=== PATIENT | female | born 1950 | race Caucasian/White ===

== ENCOUNTER → 2024-03-29 07:44 | Outpatient (REF) | payer MEDICARE, BC, SELFPAY ==
[2024-03-29 10:55] LABS: Blood Urea Nitrogen 16 mg/dl (7-17); Calcium 10.1 mg/dl (8.4-10.2); Carbon Dioxide 29 mmol/L (22-30); Chloride 96 mmol/L (98-107); Glucose 91 mg/dl (70-99); Potassium 3.6 mmol/L (3.5-5.1); Sodium 135 mmol/L (135-145); eGFR > 60.00
== END ==
LOC: HWRAD 07:44
PROVIDERS: ATTENDING PHYSICIAN Specialist; FAMILY PHYSICIAN Family Medicine
DX: E04.1 Nontoxic single thyroid nodule (principal); N28.89 Other specified disorders of kidney and ureter
CPT/HCPCS: 36415; 76536; 80048

== ENCOUNTER 2024-05-25 06:12 | Day surgery (SDC) | payer MEDICARE, BC, SELFPAY ==
--- NOTE | 2024-03-25 14:57 | CM ---
Addendum entered by Татьяна Swanson 05/17/24 09:21:
VN referral completed and sent to [facility] through [facility] for start of care on 05/25.
Addendum entered by Татьяна Swanson 04/14/24 11:56:
Patient's surgery date has been changed to 05/25/24.
Original Note:
Patient is scheduled for an elective R TKR on04/20/24- she is a same day patient. Spoke with patient prior to surgery. Introduced role of Orthopedic Navigator. Patient reports that she lives with her who has Parkinson's and adult son who will
be her 'online health and fitness coach'. THey live in split level home . One step to enter lowest level with half bath. UP 6 steps to living areas. Up 6 more steps to full bath and bedroom. She currently functions independently. She will get a rolling walker and commode.
She has never had VN services. PCP is Zora Maria.
Discussed orthopedic program and post surgical plans. Reviewed that she will have VN services initially (medicare.gov website and ratings reviewed) and will then start outpatient PT. Patient selects [facility]N (face sheet faxed to [facility] to facilitate
confirmation of benefits) for her home care needs and will go to [facility] in [place] for outpatient PT.
Patient is in agreement with plan and states that her son, spouse and children who lives near by to be home with her.
Patient will complete online education.
Plan: Orthopedic Navigator will remain available to assist with the care of patient and will reassess discharge needs after surgery.
[2024-04-01 13:59] VITALS: BMI 34.7
[2024-04-01 14:56] VITALS: BMI 34.7
[2024-04-01 15:16] LABS: Hemoglobin 11.8 g/dL (12.0-16.0); Mean Corp Hgb Conc. 33.7 g/dL (33.0-37.0); Mean Corpuscular Hgb 27.6 pg (27.0-31.0); Mean Platelet Volume 10.6 fL (7.4-10.4); Platelet Count 298 10^3/uL (130-400); Red Blood Cell Count 4.27 10^6/uL (4.20-5.40); Red Cell Dist. Width 13.9 % (11.5-14.5); White Blood Cell Count 6.8 10^3/uL (4.8-10.8)
[2024-04-01 15:38] LABS: ALT (SGPT) 18 U/L (0-35); AST (SGOT) 21 U/L (14-36); Albumin 4.4 g/dl (3.5-5.0); Alkaline Phosphatase 72 U/L (38-126); Blood Urea Nitrogen 23 mg/dl (7-17); Calcium 10.2 mg/dl (8.4-10.2); Carbon Dioxide 30 mmol/L (22-30); Chloride 94 mmol/L (98-107); Estimated Creatinine Clearance 66 ml/min; Glucose 81 mg/dl (70-99); Potassium 3.7 mmol/L (3.5-5.1); Sodium 134 mmol/L (135-145); Total Bilirubin 0.5 mg/dl (0.2-1.3); Total Protein 7.4 g/dl (6.3-8.2); eGFR > 60.00
[2024-04-02 09:18] LABS: Glycohemoglobin (HgbA1c) 5.8 % (4.0-5.6)
[2024-05-25] VITALS (16 sets, daily range): BP systolic 102–134; BP diastolic 49–95; PULSE 66; O2SAT 99; BMI 33.3
[2024-05-25] MEDS: CELEBREX 200 MG PO (06:52)
[2024-05-25] MEDS: TYLENOL 650 MG PO (06:52)
[2024-05-25] MEDS: NORMOSOL-R 1000 IV (06:53)
[2024-05-25] MEDS: ANCEF 5 IV (11:47)
== END 2024-05-25 12:25 | disposition home or self-care (01) ==
LOC: SDS 06:12
PROVIDERS: ATTENDING PHYSICIAN Orthopaedic Surgery; FAMILY PHYSICIAN Family Medicine
DX: M17.11 Unilateral primary osteoarthritis, right knee (principal)
CPT/HCPCS: 27447; 36415; 73560; 80053; 83036; 85027; 86850; 86900; 86901; 87070; 97116; 97162; C1713; C1776

== ENCOUNTER → 2024-08-18 11:50 | Outpatient (REF) | payer MEDICARE, BC, SELFPAY ==
[2024-08-18 16:12] LABS: Blood Urea Nitrogen 17 mg/dl (7-17); Calcium 10.2 mg/dl (8.4-10.2); Carbon Dioxide 29 mmol/L (22-30); Chloride 93 mmol/L (98-107); Glucose 84 mg/dl (70-99); Sodium 137 mmol/L (135-145); eGFR > 60.00
== END ==
LOC: HWLAB 11:50
PROVIDERS: ATTENDING PHYSICIAN Specialist
DX: N28.89 Other specified disorders of kidney and ureter (principal)
CPT/HCPCS: 36415; 80048

== ENCOUNTER → 2024-08-24 07:33 | Outpatient (REF) | payer MEDICARE, BC, SELFPAY | LOC: PAVMRI 07:33 | PROVIDERS: ATTENDING PHYSICIAN Specialist; FAMILY PHYSICIAN Family Medicine | DX: N28.89 Other specified disorders of kidney and ureter (principal) | CPT/HCPCS: 74183; A9575 ==

== ENCOUNTER 2024-11-25 11:51 | Emergency (ER) | payer MEDICARE, BC, SELFPAY ==
[2024-11-25 11:53] VITALS: BP 170/72
[2024-11-25 13:00] VITALS: BMI 32.2
--- NOTE | 2024-11-25 13:10 | ED.GENMED ---
History of Present Illness
General
Chief Complaint: Head Injury
Source: patient and family (Son)
Exam Limitations: none
Time Seen by Provider: 11/25/24 12:43
Nursing documentation reviewed up to this point in time: agreed with
History of Present Illness
History of Present Illness:
74-year-old female presents emergency department after hitting her right forehead after tripping and falling. She denies loss of consciousness. She denies any other pain. She takes Eliquis for atrial fibrillation.
Past History
Past History
ED Past Medical History: HTN and Other (Episode of atrial fibrillation during anesthesia x 1 , migraines)
ED Past Surgical History: and Tonsilectomy
Social History
Tobacco: Non-smoker
Alcohol: None
Drug: None
Personal:
Family History
Family History: Other (Mother with SLE, diabetes, coronary disease)
Review of Systems
Review of Systems
Allergies reviewed?: Yes
All Other Systems: Not applicable
Constitutional: Reports no symptoms
EENT: Reports no symptoms
Respiratory: Reports no symptoms
Cardiac: Reports no symptoms
ABD/GI: Reports no symptoms
: Reports no symptoms
Musculoskeletal: Reports no symptoms
Skin: Reports other (right forehead laceration)
Neurological: Reports headache
Endocrine: Reports no symptoms
Hematologic/Lymphatic: Reports no symptoms
Psychiatric: Reports no symptoms
Phy Exam
Physical Exam
Physical Exam:
Physical Exam
General: no apparent distress, not acutely ill
Neck: supple. no meningeal signs. normal posterior pharynx
Heart: s1/s2 regular rate and rhythm, no murmur. equal radial
pulses.
HEENT: Pupils equal round reactive to light, EOMI
Lungs: no acute respiratory distress. clear bilaterally
Abdomen: normal bowel sounds. not tender. no CVAT
Neuro: alert and oriented. no focal neurological deficits cranial nerves II through XII intact
Skin: no rash, right forehead laceration, stellate
Psychiatric: well kept. interactive and cooperative
Extremities: no edema. no calf tenderness. negative homans. good distal pulses
Course
Orders/Labs/Results
Orders:
Orders
11/25/24 11:52
CT Head W/o Iv Contrast Urgent
Comment:
Reason For Exam: fell hit head on bld thinner
11/25/24 13:30
Acetaminophen [Tylenol] 650 mg PO NOW STA
Vital Signs
Initial and Last Documented VS:
Initial Vital Signs
Temp Pulse Resp BP Pulse Ox
98.0 F 76 16 170/72 98
11/25/24 11:53 11/25/24 11:53 11/25/24 11:53 11/25/24 11:53 11/25/24 11:53
Last Documented Vital Signs
Temp Pulse Resp BP Pulse Ox
98.0 F 76 16 170/72 98
11/25/24 11:53 11/25/24 11:53 11/25/24 11:53 11/25/24 11:53 11/25/24 11:53
Procedures
Laceration Closure
Right Forehead:
Status of Wound: clean
Size of Wound in cm: 3
Description of Wound Edges: sharp
Preparation: cleaned with saline
Anesthesia: 1% Lidocaine with epi
Revision/Debridement: routine- no revision
Wound exploration: explored to base- no FB
Type of Closure: single layer closure
Skin Closure Material: 4-0 prolene
Number of sutures: 5
MDM/Problems Addressed
Differential Diagnosis Includes:
Forehead laceration, intracranial hemorrhage
MDM/Problems Addressed:
74-year-old female with right forehead laceration, no signs of intracranial hemorrhage. Tetanus updated. Stable for discharge.
*Radiology
Radiology exam reviewed: radiology read reviewed (CT head no acute findings)
*Pulse Oximetry
Patient hypoxic: no
*Critical Care Note
Total Time (30-74mins, 75-104mins- exclusive of procedures): Not Applicable
Patient Management
Escalation/DeEscalation of care consider admission/obs:
Admit not indicated
ED Attending Note
-
Portions of this chart may have been created with voice recognition software.� Occasional wrong word or��sound alike� substitutions may have occurred due to the inherent limitations of voice recognition software.
Discharge Plan
Departure
Patient Disposition: Home (Routine Discharge)
Date of Disposition: 11/25/24
Time of Disposition: 13:43
Patient with high blood pressure during this ER visit?: Yes
Condition: Good
Discharge Problem:
Forehead laceration, Fall
Instructions: Head Injury in Adults (DC), Laceration Repair With Stitches (DC), BLOOD PRESSURE
Prescriptions:
No Action
lisinopril-hydrochlorothiazide 20-25 mg Tablet
1 tab PO DAILY
metoprolol succinate 25 mg Tablet Extended Release 24 Hr
25 mg PO QPM
fluticasone propionate [Flonase Allergy Relief] 50 mcg/actuation [place],Suspension
1 spray INTRANASAL PRN PRN (Reason: allergies)
escitalopram oxalate 20 mg Tablet
20 mg PO DAILY
Eliquis 5 mg Tablet
5 mg PO BID
Mounjaro 2.5 mg/0.5 mL Pen Injector
2.5 mg SC QWEEK
montelukast 10 mg Tablet
10 mg PO QPM
ondansetron HCl 4 mg Tablet
4 mg PO Q6H PRN (Reason: post op nausea)
Patient Comments:
*
dexamethasone 4 mg Tablet
4 mg PO Q12H
Patient Comments:
*
mupirocin 2 % Ointment
1 applic TOPICAL BID
oxycodone 5 mg Tablet
5 - 10 mg PO Q6H PRN (Reason: post op pain)
Patient Comments:
*
gabapentin 300 mg Capsule
300 mg PO BID
Activity Restrictions/Additional Instructions:
Follow up with primary care in 5 days for suture removal.
Interventions
Interventions:
*Risk Screen - Suicide Last Done: 11/25/24 11:55
*Neglect/Abuse Screening Last Done: 11/25/24 11:55
ED- Neurological Assessment Last Done: 11/25/24 13:00
ED-Skin Assessment Last Done: 11/25/24 13:00
Discharge Date and Time
Print Language: PERSIAN
[2024-11-25] MEDS: TYLENOL 650 MG PO (13:48)
[2024-11-25] MEDS: ADACEL 0.5 ML IM (13:52)
== END 2024-11-25 14:23 | disposition home or self-care (01) ==
LOC: EMR 11:51
PROVIDERS: EMERGENCY PHYSICIAN Emergency Medicine; FAMILY PHYSICIAN Family Medicine
DX: S01.81XA Laceration without foreign body of other part of head, initial encounter (principal); W01.0XXA Fall on same level from slipping, tripping and stumbling without subsequent striking against object, initial encounter; I48.91 Unspecified atrial fibrillation; Z79.01 Long term (current) use of anticoagulants; I10 Essential (primary) hypertension; Z23 Encounter for immunization
CPT/HCPCS: 12013; 99284; 90471; 70450; 90715

== ENCOUNTER → 2025-01-26 07:13 | Outpatient (REF) | payer MEDICARE, BC, SELFPAY | LOC: HWRCS 07:13 | PROVIDERS: ATTENDING PHYSICIAN Internal Medicine Cardiovascular Disease; FAMILY PHYSICIAN Family Medicine | DX: I48.0 Paroxysmal atrial fibrillation (principal); I10 Essential (primary) hypertension; R07.89 Other chest pain | CPT/HCPCS: 93306 ==

== ENCOUNTER → 2025-02-03 10:36 | Outpatient (REF) | payer MEDICARE, BC, SELFPAY | LOC: RCS 10:36 | PROVIDERS: ATTENDING PHYSICIAN Internal Medicine Cardiovascular Disease; FAMILY PHYSICIAN Family Medicine | DX: I48.0 Paroxysmal atrial fibrillation (principal); I10 Essential (primary) hypertension; R07.89 Other chest pain | CPT/HCPCS: 93017 ==

== ENCOUNTER → 2025-05-10 13:00 | Outpatient (REF) | payer MEDICARE, BC, SELFPAY | LOC: HWRAD 13:00 | PROVIDERS: ATTENDING PHYSICIAN Family Medicine | DX: E04.1 Nontoxic single thyroid nodule (principal) | CPT/HCPCS: 76536 ==

== ENCOUNTER → 2025-07-17 07:28 | Outpatient (REF) | payer MEDICARE, BC, SELFPAY | LOC: PAVMRI 07:28 | PROVIDERS: ATTENDING PHYSICIAN Specialist; FAMILY PHYSICIAN Family Medicine | DX: N28.89 Other specified disorders of kidney and ureter (principal) | CPT/HCPCS: 74183; A9575 ==